=== PATIENT | male | born 1965 | race Caucasian/White ===

== ENCOUNTER 2017-06-07 10:54 | Emergency (ER) | payer MEDICAID, OTHER ==
[~2017-06-07] VITALS: Ht 177.8 cm; Wt 99.8 kg
[~2017-06-07 10:54] MED LIST: HYDR-548 PO; IBUP-1957 PO
--- NOTE | 2017-06-07 11:20 | NUR ---
Dr pretty at the bedside for eval and exam.
[2017-06-07 12:09] VITALS: BP 140/55
--- NOTE | 2017-06-07 12:10 | NUR ---
Patient discharged to home in stable conditon. Written and verbal after care instructions given. Patient verbalizes understanding of instructions.
== END 2017-06-07 12:10 | disposition home or self-care (01) ==
LOC: ER 10:54
DX: G89.18 Other acute postprocedural pain (principal); H92.01 Otalgia, right ear; Z98.890 Other specified postprocedural states
CPT/HCPCS: 99283; A4663